=== PATIENT | female | born 1985 | race Caucasian/White ===

== ENCOUNTER 2016-11-04 13:44 | Emergency (ER) | payer MEDICAID ==
--- NOTE | 2016-11-04 14:19 | UC ---
Throat Pain/Nasal René HPI - HPI Summary HPI Summary: Sore trhoat for one day also feels bloated slightly nausead, pain around her bellybutton and lower abd pain - History of Current Complaint Chief Complaint: UCGeneralIllness Stated Complaint: SORE THROAT HEADACHE ABD PAIN Time Seen by Provider: 11/04/16 13:52 Hx Obtained From: Patient Hx Last Menstrual Period: April (was on depo) ?: No Onset/Duration: Sudden Onset, Lasting Days - 1, Still Present Severity: Moderate Pain Intensity: 6 Pain Scale Used: 0-10 Numeric Cough: None - Allergies/Home Medications Allergies/Adverse Reactions: Allergies Allergy/AdvReac Type Severity Reaction Status Date / Time No Known Allergies Allergy Verified 11/04/16 13:51 Home Medications: Home Medications Docusate CAP* [Colace Cap*] 11/04/16 [History] Hydrochlorothiazide TAB* [Hydrodiuril TAB*] 11/04/16 [History] Ibuprofen TAB* [Motrin TAB* 600 MG] 11/04/16 [History] guaiFENesin ER TAB [Mucinex*] 11/04/16 [History] hydrOXYzine PAMOATE CAP* [Vistaril CAP*] 11/04/16 [History] PMH/Surg Hx/FS Hx/Imm Hx Previously Healthy: No - 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 Psychological History: Anxiety Other History Of: Hepatitis C - Surgical History Surgical History: None - Family History Known Family History: Positive: None - Social History Occupation: Unemployed Lives: With Family Alcohol Use: None Substance Use Type: None Substance Use Comment - Amount & Last Used: hx of IVDA Smoking Status (MU): Former Smoker Review of Systems Constitutional: Negative Skin: Negative Eyes: Negative ENT: Sore Throat Respiratory: Negative Cardiovascular: Negative Gastrointestinal: Abdominal Pain, Nausea Genitourinary: Negative Motor: Negative Neurovascular: Negative Musculoskeletal: Negative Neurological: Negative Psychological: Negative All Other Systems Reviewed And Are Negative: Yes Physical Exam Triage Information Reviewed: Yes Appearance: Well-Appearing, No Pain Distress, Well-Nourished Vital Signs: Initial Vital Signs Temp 98.2 F 11/04/16 13:53 Pulse 110 11/04/16 13:53 Resp 16 11/04/16 13:53 BP 110/63 11/04/16 13:53 Pulse Ox 97 11/04/16 13:53 Vital Signs Reviewed: Yes Eye Exam: Normal Eyes: Positive: Conjunctiva Clear ENT Exam: Normal ENT: Positive: Normal ENT inspection, Hearing grossly normal, Pharynx normal, TMs normal. Negative: Nasal congestion, Nasal drainage, Trismus, Muffled/ hoarse voice Dental Exam: Normal Neck exam: Normal Neck: Positive: Supple, Nontender, No Lymphadenopathy Respiratory Exam: Normal Respiratory: Positive: Chest non-tender, Lungs clear, Normal breath sounds, No respiratory distress, No accessory muscle use Cardiovascular Exam: Normal Cardiovascular: Positive: No Murmur, Pulses Normal, Brisk Capillary Refill, Tachycardia Abdominal Exam: Normal Abdomen Description: Positive: No Organomegaly, Soft, Distended, Other: - lower abd discomfort/umbil. and rlq pain. Negative: CVA Tenderness (R), CVA Tenderness (L) Bowel Sounds: Positive: Present Musculoskeletal Exam: Normal Musculoskeletal: Positive: Strength Intact, ROM Intact, No Edema Neurological Exam: Normal Neurological: Positive: Alert, Muscle Tone Normal Psychological Exam: Normal Skin Exam: Normal Diagnostics - Laboratory Diagnostic Studies Completed/Ordered: trace leuks, upreg (-) Re-Evaluation - Re-Evaluation First Eval Change: Unchanged - reviewed dx of abd pain with patient and mother as well as concerns for possible surgical emergencies-like appen. pt and mother prefer watchful waiting and will go to the ED for any change or increase in symptoms Throat Pain/Nasal Course/Dx - Course Assessment/Plan: rest, shared decision making for watchful waiting of abd pain to ED for change , increase of failure of symptoms to resove - Differential Dx/Diagnosis Differential Diagnosis/HQI/PQRI: Laryngitis, Otitis Media, Pharyngitis, URI Provider Diagnoses: URI, Abdomenal pain Discharge - Discharge Plan Condition: Stable Disposition: HOME Patient Education Materials: Acute Abdominal Pain (ED) Referrals: [facility] [place] PHYSICIAN REFERRAL [Outside] - 3 Days
== END 2016-11-04 14:43 | disposition home or self-care (01) ==
LOC: UCEAST 13:44
DX: J06.9 Acute upper respiratory infection, unspecified (principal); R10.33 Periumbilical pain; Z32.02 Encounter for pregnancy test, result negative; R11.0 Nausea; R14.0 Abdominal distension (gaseous); F41.9 Anxiety disorder, unspecified; Z87.891 Personal history of nicotine dependence
CPT/HCPCS: 81003; 84702; 87086; 87651; 99201; G0463

== ENCOUNTER 2018-05-08 10:47 | Emergency (ER) | payer BC ==
[2018-05-08] MEDS ORDERED: Bupivacaine 0.5% W/EPI SDV* 30 ML VIAL INJ ONE (11:18)
[2018-05-08] MEDS ORDERED: Clindamycin CAP* 150 MG PO ONE (11:18)
--- NOTE | 2018-05-08 11:18 | ED ---
Throat Pain/Nasal Congestion - HPI Summary HPI Summary: Pt is a 32 y/o female who presents to the ED c/o dental pain. She reports pain of her left lower 2nd molar for the past 3 days. The pain is rated 5/10 in severity. - History of Current Complaint Chief Complaint: EDDentalPain Time Seen by Provider: 05/08/18 11:10 Hx Obtained From: Patient Onset/Duration: Gradual Onset, Lasting Days - 3, Still Present Severity: Moderate - 5/10 Associated Signs And Symptoms: Positive: Negative Cough: None Related History: Smoking - Former smoker - Allergies/Home Medications Allergies/Adverse Reactions: Allergies Allergy/AdvReac Type Severity Reaction Status Date / Time amoxicillin Allergy See Comment Verified 05/08/18 10:57 PMH/Surg Hx/FS Hx/Imm Hx Endocrine/Hematology History: Denies: Hx Diabetes Cardiovascular History: Denies: Hx Hypertension Psychiatric History: Reports: Hx Anxiety Infectious Disease History: No Infectious Disease History: Denies: History Other Infectious Disease, Traveled Outside the [place] in Last 30 Days - Family History Known Family History: Positive: Diabetes - Social History Alcohol Use: None Hx Substance Use: Yes Substance Use Type: Reports: Other - Opiates Substance Use Comment - Amount & Last Used: hx of IVDA, in remission Hx Tobacco Use: Yes Smoking Status (MU): Former Smoker Review of Systems Negative: Fever Positive: Dental Pain - 2nd molar All Other Systems Reviewed And Are Negative: Yes Physical Exam - Summary Physical Exam Summary: Appearance: Well appearing, no pain distress Skin: warm, dry, reflects adequate perfusion Head/face: normal Eyes: EOMI, KATIA ENT: mucous membranes moist, 1st left lower molar has erosions, 2nd left lower molar is eroded to gumline, tenderness of surrounding gingiva, no swelling Neck: supple, non-tender Respiratory: CTA, breath sounds present Cardiovascular: RRR, pulses symmetrical Abdomen: non-tender, soft Bowel Sounds: present Musculoskeletal: normal, strength/ROM intact Neuro: normal, sensory motor intact, A&Ox3 Triage Information Reviewed: Yes Vital Signs On Initial Exam: Initial Vitals Temp Pulse Resp BP Pulse Ox 99.1 F 84 16 123/90 97 05/08/18 10:54 05/08/18 10:54 05/08/18 10:54 05/08/18 10:54 05/08/18 10:54 Vital Signs Reviewed: Yes Diagnostics - Vital Signs Vital Signs Temp Pulse Resp BP Pulse Ox 05/08/18 10:54 99.1 F 84 16 123/90 97 - Laboratory Lab Statement: Any lab studies that have been ordered have been reviewed, and results considered in the medical decision making process. EENT Course/Dx - Course Course Of Treatment: Nurse's notes reviewed. Patient with dental erosions from caries with discomfort without evidence of visible abscess or facial swelling. Started on clindamycin here. Continue same. Follow-up with dental. Patient was offered and refused a dental block. - Differential Diagnoses Differential Diagnoses: Other - Dental caries, dental abscess - Diagnoses Provider Diagnoses: Pain, dental, Dental caries Discharge - Sign-Out/Discharge Documenting (check all that apply): Patient Departure - Discharge Patient Received Moderate/Deep Sedation with Procedure: No - Discharge Plan Condition: Stable Disposition: HOME Prescriptions: Clindamycin Cap(NF) [Clindamycin Cap 300 mg Cap(NF)] 300 mg PO TID #30 cap Patient Education Materials: Toothache (ED) Referrals: [facility] [place] [facility]IAN REFERRAL [Outside] No Primary Care Phys,NOPCP [Primary Care Provider] - Additional Instructions: Call to schedule an appointment with a dentist as soon as possible. Referral line for a local primary care doctor was given to you. Return with fever, facial swelling, worse, new symptoms or other concerns. Continue Tylenol, ibuprofen. - Billing Disposition and Condition Condition: STABLE Disposition: Home - Attestation Statements Document Initiated by Scribe: Yes Documenting Scribe: Lily Bryant Provider For Whom Scribe is Documenting (Include Credential): Abdiel Reed MD Scribe Attestation: Lily Chapin scribed for Abdiel Reed MD on 05/08/18 at 1153. Scribe Documentation Reviewed: Yes Provider Attestation: The documentation as recorded by the Lily cameron accurately reflects the service I personally performed and the decisions made by , Abdiel Reed MD Status of Scribe Document: Viewed
[2018-05-08 11:30] VITALS: BP 124/86
== END 2018-05-08 11:28 | disposition home or self-care (01) ==
LOC: ED 10:47
DX: K08.89 Other specified disorders of teeth and supporting structures (principal); K02.9 Dental caries, unspecified; Z87.891 Personal history of nicotine dependence; Z88.0 Allergy status to penicillin
CPT/HCPCS: 99282; A9270-GY

== ENCOUNTER 2018-06-30 11:02 | Emergency (ER) | payer BC ==
[2018-06-30 11:12] VITALS: BP 121/80
--- NOTE | 2018-06-30 11:18 | UC ---
Dental HPI - HPI Summary HPI Summary: Patient has a broken left lower distal molar and another molar with a cavity and partially broken. She states she's had a toothache over the past few days. She did call a dentist to make an appointment however they want payment upfront and today she noted that the left lower jaw had some mild swelling so she wanted that checked for an abscess. - History of Current Complaint Chief Complaint: UCDentalProblem Stated Complaint: MOUTH PAIN Time Seen by Provider: 06/30/18 11:12 Hx Obtained From: Patient Hx Last Menstrual Period: 06/12/18 ?: No Onset/Duration: Gradual Onset, Lasting Weeks - Though she has had broken and decayed teeth for several weeks she states it's worse over the past few days and today she noted there was some swelling to her left lower jaw. Severity: Moderate Pain Intensity: 6 Aggravating Factor(s): Heat, Cold, Chewing Alleviating Factor(s): Nothing - Should took ibuprofen without improvement. Related History: Swelling - Mild swelling left jaw noted today. - Allergies/Home Medications Allergies/Adverse Reactions: Allergies Allergy/AdvReac Type Severity Reaction Status Date / Time amoxicillin Allergy See Comment Verified 05/08/18 10:57 Penicillins Allergy Swelling Verified 06/30/18 11:12 Of Face,Lips,& Throat PMH/Surg Hx/FS Hx/Imm Hx Previously Healthy: Yes Other History Of: Hepatitis C - Surgical History Surgical History: None - Family History Known Family History: Positive: Diabetes - Social History Alcohol Use: None Substance Use Type: Other Substance Use Comment - Amount & Last Used: hx of IVDA, in remission Smoking Status (MU): Former Smoker When Did the Patient Quit Smoking/Using Tobacco: 2 weeks Review of Systems All Other Systems Reviewed And Are Negative: Yes ENT: Positive: Dental Pain - Patient has had 2 broken molars for which she has sought treatment in the past however she's been unable to get into a dentist. Is Patient Immunocompromised?: No Physical Exam Triage Information Reviewed: Yes Appearance: Well-Appearing, No Pain Distress, Well-Nourished Vital Signs: Initial Vital Signs Temp 97.8 F 06/30/18 11:06 Pulse 86 06/30/18 11:06 Resp 16 06/30/18 11:06 BP 121/80 06/30/18 11:06 Pulse Ox 100 06/30/18 11:06 Vital Signs Reviewed: Yes Eye Exam: Normal ENT Exam: Normal ENT: Positive: Hearing grossly normal, Pharynx normal, TMs normal, Dental tenderness - Patient has the left lower distal molar completely broken at the gumline and the volar proximal to that is partially broken with decay. The gumline itself is mildly erythematous and minimally swollen but there is no evidence of abscess formation. The teeth are tender on firm palpation. The gum itself is tender on firm palpation., Uvula midline. Negative: Tonsillar swelling, Tonsillar exudate, Trismus, Muffled voice, Hoarse voice Dental: Positive: Percussion Tenderness @ - See notes above, Gross Decay/Caries @, Dental Fracture @ Neck exam: Normal Neck: Positive: Supple, Nontender, No Lymphadenopathy Respiratory Exam: Normal Cardiovascular Exam: Normal Musculoskeletal Exam: Normal Neurological Exam: Normal Psychological Exam: Normal Skin Exam: Normal Dental Complaint Course/Dx - Course Course Of Treatment: The patient is going to contact her insurance provider to research dentists with whom should make an appointment. I advised her to do that on Monday as soon as possible. I'm going to start her on clindamycin 300 mg 3 times a day for 10 days, prescription was sent for Motrin 600 mg every 8 hours for pain. She may alternate that with Tylenol. She preferred not to have an injection of Toradol - Differential Dx/Diagnosis Provider Diagnosis: Toothache, Dental caries Discharge - Sign-Out/Discharge Documenting (check all that apply): Patient Departure All imaging exams completed and their final reports reviewed: No Studies - Discharge Plan Condition: Fair Disposition: HOME Prescriptions: Clindamycin Cap(NF) [Clindamycin Cap 300 mg Cap(NF)] 300 mg PO TID 7 Days #21 cap Ibuprofen TAB* [Motrin TAB* 600 MG] 600 mg PO Q8H PRN #20 tab PRN Reason: Pain Patient Education Materials: Toothache (ED) Referrals: No Primary Care Phys,NOPCP [Primary Care Provider] - [facility] [Outside] Additional Instructions: Take the Motrin and the antibiotic with food. Definite follow-up with the dentist as soon as possible for further care. - Billing Disposition and Condition Condition: FAIR Disposition: Home
== END 2018-06-30 11:25 | disposition home or self-care (01) ==
LOC: UCEAST 11:02
DX: K02.9 Dental caries, unspecified (principal); Z88.0 Allergy status to penicillin; Z87.891 Personal history of nicotine dependence
CPT/HCPCS: 99212; G0463

== ENCOUNTER 2018-07-27 12:21 | Emergency (ER) | payer BC ==
--- NOTE | 2018-07-27 12:47 | ED ---
Throat Pain/Nasal Congestion - HPI Summary HPI Summary: A 32 y/o female presents to [facility] with a chief complaint of lower left dental pain. She reports that she has taken Clindamycin and has her next dental appointment on 08/01/18. She is concerned that she may have an infection. She also reports using a rotation of Ibuprofen and Tylenol. The patient denies any fever, chills, erythema of eyes, sore throat, CP, SOB, cough, abdominal pain, N/ V, dysuria, hematuria, myalgia, edema, rash, or dizziness. - History of Current Complaint Chief Complaint: EDDentalPain Time Seen by Provider: 07/27/18 12:34 Hx Obtained From: Patient Onset/Duration: Sudden Onset, Lasting Days, Still Present Severity: Moderate Associated Signs And Symptoms: Positive: Negative - fever, chills, erythema of eyes, sore throat, CP, SOB, cough, abdominal pain, N/V, dysuria, hematuria, myalgia, edema, rash, or dizziness. Cough: None - Allergies/Home Medications Allergies/Adverse Reactions: Allergies Allergy/AdvReac Type Severity Reaction Status Date / Time amoxicillin Allergy See Comment Verified 07/27/18 12:26 Penicillins Allergy Swelling Verified 07/27/18 12:26 Of Face,Lips,& Throat PMH/Surg Hx/FS Hx/Imm Hx Endocrine/Hematology History: Denies: Hx Diabetes Cardiovascular History: Denies: Hx Hypertension Psychiatric History: Reports: Hx Anxiety Infectious Disease History: No Infectious Disease History: Denies: History Other Infectious Disease, Traveled Outside the [place] in Last 30 Days - Family History Known Family History: Positive: Diabetes - Social History Alcohol Use: None Hx Substance Use: Yes Substance Use Type: Reports: Other Substance Use Comment - Amount & Last Used: hx of IVDA, in remission Hx Tobacco Use: Yes Smoking Status (MU): Former Smoker Review of Systems Negative: Fever, Chills Negative: Blurred Vision Positive: Dental Pain. Negative: Sore Throat Negative: Chest Pain Negative: Shortness Of Breath, Cough Negative: Abdominal Pain, Vomiting, Nausea Negative: dysuria, hematuria Negative: Myalgia, Edema Negative: Rash Neurological: Negative - dizziness All Other Systems Reviewed And Are Negative: Yes Physical Exam - Summary Physical Exam Summary: Constitutional: Well-developed, Well-nourished, Alert. (-) Distressed Skin: Warm, Dry HENT: Normocephalic; Atraumatic, tooth number 18 is decayed down to gum line where she points to pain, No drainable abscess, no sublingual erythema, no Ludwigs angina, no trismus Eyes: Conjunctiva normal Neck: Musculoskeletal ROM normal neck. (-) JVD, (-) Stridor, (-) Tracheal deviation Cardio: Rhythm regular, rate normal, Heart sounds normal; Intact distal pulses; The pedal pulses are 2+ and symmetric. Radial pulses are 2+ and symmetric. (-) Murmur Pulmonary/Chest wall: Effort normal. (-) Respiratory distress, (-) Wheezes, (-) Rales Abd: Soft, (-) tenderness, (-) Distension, (-) Guarding, (-) Rebound Musculoskeletal: (-) Edema Lymph: (-) Cervical adenopathy Neuro: Alert, Oriented x3 Psych: Mood and affect Normal Triage Information Reviewed: Yes Vital Signs On Initial Exam: Initial Vitals Temp Pulse Resp BP Pulse Ox 98.8 F 94 16 125/80 98 07/27/18 12:23 07/27/18 12:23 07/27/18 12:23 07/27/18 12:23 07/27/18 12:23 Vital Signs Reviewed: Yes Diagnostics - Vital Signs Vital Signs Temp Pulse Resp BP Pulse Ox 07/27/18 12:23 98.8 F 94 16 125/80 98 - Laboratory Lab Statement: Any lab studies that have been ordered have been reviewed, and results considered in the medical decision making process. EENT Course/Dx - Course Course Of Treatment: A 32 y/o female presents to [facility] with a chief complaint of lower left dental pain. She reports that she has taken Clindamycin and has her next dental appointment on 08/01/18. She is concerned that she may have an infection. The physical exam revealed tooth number 18 is decayed down to gum line where she points to pain, No drainable abscess, no sublingual erythema, no Ludwigs angina, no trismus. The patient will be discharged with a prescription for Clindamycin and was instructed to follow up with her dentist and PCP. The patient is agreeable with this plan. - Diagnoses Provider Diagnoses: Pain, dental Discharge - Sign-Out/Discharge Documenting (check all that apply): Patient Departure - DC Patient Received Moderate/Deep Sedation with Procedure: No - Discharge Plan Condition: Stable Disposition: HOME Prescriptions: Clindamycin Cap(NF) [Clindamycin Cap 300 mg Cap(NF)] 300 mg PO TID 7 Days #21 cap Referrals: [facility] [place] PHYS[facility]IAN REFERRAL [Outside] (2-3 days) Additional Instructions: RETURN TO THE EMERGENCY DEPARTMENT FOR CHANGING OR WORSENING SYMPTOMS - Attestation Statements Document Initiated by Scribe: Yes Documenting Scribe: Duran Terry Provider For Whom Scribe is Documenting (Include Credential): Rudy Rios MD Scribe Attestation: Duran Chapin, scribed for Rudy Rios MD on 07/27/18 at 1250. Status of Scribe Document: Ready
[2018-07-27 13:06] VITALS: BP 118/80
== END 2018-07-27 13:05 | disposition home or self-care (01) ==
LOC: ED 12:21
DX: K08.89 Other specified disorders of teeth and supporting structures (principal); F41.9 Anxiety disorder, unspecified; Z88.0 Allergy status to penicillin; Z88.3 Allergy status to other anti-infective agents; Z87.891 Personal history of nicotine dependence
CPT/HCPCS: 99282

== ENCOUNTER 2019-06-28 10:30 | Emergency (ER) | payer SELFPAY ==
--- NOTE | 2019-06-28 10:44 | UC ---
Dental HPI - HPI Summary HPI Summary: 33-year-old female presents with complaints of 2 day history of left upper dental pain and pressure. States pain is minimal but feels a lot of pressure over her left maxilla. Reports known poor dentition but has been unable to schedule dentist appointment due to lack of insurance. Denies fever, chills, facial swelling, drainage, or trismus. - History of Current Complaint Chief Complaint: UCDentalProblem Stated Complaint: DENTAL PAIN Time Seen by Provider: 06/28/19 10:40 Hx Obtained From: Patient Hx Last Menstrual Period: 06/25/19 Pain Intensity: 0 - Allergies/Home Medications Allergies/Adverse Reactions: Allergies Allergy/AdvReac Type Severity Reaction Status Date / Time No Known Allergies Allergy Verified 06/28/19 10:37 Home Medications: Home Medications Ibuprofen TAB* [Advil TAB*] 600 mg PO ONCE 06/28/19 [History Confirmed 06/28/19] clindamycin HCL [Clindamycin HCl] 300 mg PO TID #30 capsule 06/28/19 [Rx] PMH/Surg Hx/FS Hx/Imm Hx Previously Healthy: Yes - Denies significant PMH Other History Of: Hepatitis C - Surgical History Surgical History: None - Family History Known Family History: Positive: Diabetes - Social History Occupation: Unemployed Lives: With Family Alcohol Use: None Substance Use Type: None Substance Use Comment - Amount & Last Used: hx of IVDA, in remission Smoking Status (MU): Light Every Day Tobacco Smoker Amount Used/How Often: 7 cigs/day When Did the Patient Quit Smoking/Using Tobacco: 2 weeks Review of Systems All Other Systems Reviewed And Are Negative: Yes Constitutional: Negative: Fever, Chills ENT: Positive: Dental Pain. Negative: Sore Throat, Nasal Discharge, Sinus Congestion, Sinus Pain/Tenderness Respiratory: Positive: Negative Cardiovascular: Positive: Negative Gastrointestinal: Positive: Negative Genitourinary: Positive: Negative Neurological/Mental Status: Positive: Negative Physical Exam - Summary Physical Exam Summary: GENERAL APPEARANCE: Well developed, well nourished, alert and cooperative, and appears to be in no acute distress. HEAD: Atraumatic. Normocephalic. No facial swelling. MOTUH/THROAT: Pharynx normal. No tonsilar inflammation, swelling, exudate, or lesions. Uvula midline. Teeth and gingiva in overall poor condition. Tenderness over the left upper cuspid. No obvious abscess. NECK: Neck supple, non-tender without lymphadenopathy. CARDIAC: Normal S1 and S2. No S3, S4 or murmurs. Rhythm is regular. There is no peripheral edema, cyanosis or pallor. Extremities are warm and well perfused. Capillary refill is less than 2 seconds. Peripheral pulses intact. LUNGS: Clear to auscultation without rales, rhonchi, wheezing or diminished breath sounds. ABDOMEN: Positive bowel sounds. Soft, nondistended, nontender. No guarding or rebound. No masses or hepatosplenomegally. MUSKULOSKELETAL: ROM intact to all extremities. No joint erythema or tenderness. Normal muscular development. Normal gait. SKIN: Skin normal color, texture and turgor with no lesions or eruptions. Triage Information Reviewed: Yes Vital Signs Reviewed: Yes Dental Complaint Course/Dx - Course Course Of Treatment: 33-year-old female presents with complaints of 2 day history of left upper dental pain and pressure. States pain is minimal but feels a lot of pressure over her left maxilla. Reports known poor dentition but has been unable to schedule dentist appointment due to lack of insurance. Denies fever, chills, facial swelling, drainage, or trismus. Afebrile. VSS. Patient had no facial swelling, pharynx was normal without tonsilar inflammation, swelling, exudate, or lesions, uvula midline, teeth and gingiva were in overall poor condition with tenderness over the left upper cuspid. No obvious abscess noted. No trismus. Will start her on clindamycin 300 mg 3 times a day 10 days to treat for likely dental infection. She is to schedule an appointment with her dentist at the next available. Anticipatory guidance and warning symptoms were reviewed with the patient. Verbalizes understanding and agrees with plan of care. - Differential Dx/Diagnosis Differential Diagnosis/Dx: Dental Abscess, Dental Caries, Fractured Tooth, Yoseph's Angina, Odontogenic Pain, Peridontic Disease Provider Diagnosis: Pain, dental Discharge ED - Sign-Out/Discharge Documenting (check all that apply): Patient Departure All imaging exams completed and their final reports reviewed: No Studies - Discharge Plan Condition: Stable Disposition: HOME Prescriptions: clindamycin HCL [Clindamycin HCl] 300 mg PO TID #30 capsule Patient Education Materials: Toothache (ED) Referrals: No Primary Care Phys,NOPCP [Primary Care Provider] - Additional Instructions: Start clindamycin 300 mg 1 capsule three times a day for 10 days. Take acetaminophen (Tylenol) or ibuprofen (Advil, Motrin) according to directions as needed for pain. Be sure to rinse your mouth out with a warm salt water solution after every time you eat to remove any debris. Make an appointment with your dentist at next available appointment. Seek immediate medical attention in the emergency room if you develop fever greater than 100.5 F, you are unable to open of close your mouth, are unable to swallow, have difficulty breathing, or any worsening of symptoms. - Billing Disposition and Condition Condition: STABLE Disposition: Home
[2019-06-28 10:45] VITALS: BP 121/82
== END 2019-06-28 11:00 | disposition home or self-care (01) ==
LOC: UCEAST 10:30
DX: K08.89 Other specified disorders of teeth and supporting structures (principal); Z87.891 Personal history of nicotine dependence
CPT/HCPCS: 99212; G0463